=== PATIENT | female | born 1985 | race Caucasian/White ===

== ENCOUNTER 2016-08-24 01:06 | Inpatient (IN) | payer OTHER ==
[2016-08-24] VITALS (9 sets, daily range): BP systolic 92–143; BP diastolic 69–109
[~2016-08-24] VITALS: Ht 162.6 cm; Wt 60.3 kg
[~2016-08-24 01:06] MED LIST: ATARAX,VISTARIL50 MG PO; ATIVAN PO; Acyclovir PO; Atarax,Vistaril PO; BACTRIM,SEPT1 TABLET PO; BUSPAR10 MG PO; BUSPAR15 MG PO; CIPRO500 MG PO; CLINDAMYCIN HC300 MG PO; DESYREL100 MG PO; FLINTSTONES1 TABLET PO; HALDOL10 MG PO; MACROBID100 MG PO; MOTRIN600 MG PO; Motrin PO; NOHOMEMEDS; NYSTATIN-TRIAMC15 GM TP; PAXIL10 MG PO; PAXIL2 MG/ML PO; PAXIL20 MG PO; PAXIL30 MG PO; PAXIL40 MG PO; PREDNISONE50 MG PO; PROVENTIL HFA6.7 GM IH; Phenergan PO; REGLAN5 MG PO; TERAZOL 745 GM VG; THORAZINE50 MG PO; TORADOL10 MG PO; TRAZODONE HCL100 MG PO; TRAZODONE HCL50 MG PO; ULTRAM50 MG PO; VALTREX1000 MG PO; VENTOLIN HFA18 GM IH; VISTARIL25 MG PO; ZITHROMAX Z-PA250 MG PO; ZOLOFT25 MG; ZOLOFT50 MG PO; Zoloft PO
[2016-08-24 02:07] LABS: HEMATOCRIT 43.1 % (36.0-46.0); MCH 29.2 PG (29.0-34.0); MCHC 33.2 G/DL (30.0-36.0); MCV 88.1 FL (83-99); MEAN PLAT.VOLUME 9.2 uM^3 (9.5-12.4); PLATELET COUNT 361 K/uL (156-360); RBC DIS.WIDTH-CV 13.2 % (11.8-14.6); RBC DIS.WIDTH-SD 42.9 % (39-53); RED BLOOD COUNT 4.89 M/uL (3.80-5.20); WHITE BLOOD COUNT 13.1 K/uL (4.1-10.2)
[2016-08-24 02:24] LABS: CHLORIDE 105 mEq/L (99-109); SODIUM 140 mEq/L (136-147)
[2016-08-24 02:26] LABS: GLUCOSE 92 mg/dL (70-99)
[2016-08-24 02:27] LABS: ANION GAP 13 MEQ/L (2-14)
[2016-08-24 02:29] LABS: SERUM ETHYL ALCOHOL < 10 mg/dL
[2016-08-24 02:30] LABS: GFR ESTIMATE (CALCULATED) > 59 mL/min/
[2016-08-24 02:32] LABS: UREA NITROGEN (BUN) 8 mg/dL (9-23)
[2016-08-24 02:33] LABS: SALICYLATE < 5.0 MG/DL (15-30)
[2016-08-24 02:39] LABS: QUANTITATIVE HCG < 4.0 MIU/ML
[2016-08-24 04:32] LABS: ADD MIUA? YES; BILIRUBIN NEGATIVE; BLOOD NEGATIVE; COLOR YELLOW ((YELLOW)); GLUCOSE (STRIP) NEGATIVE; KETONES NEGATIVE; LEUKOCYTES TRACE; NITRITE NEGATIVE; PROTEIN (STRIP) 30; UROBILINOGEN 0.2 MG/DL (0.2-1.0)
[2016-08-24 04:40] LABS: AMPHETAMINE NEGATIVE (500 ng/mL); BARBITURATES NEGATIVE (200 ng/mL); BENZODIAZEPINES PRESUMPTIVE POSITIVE (150 ng/mL); COCAINE NEGATIVE (150 ng/mL); INTERNAL CONTROLS VALID? YES; METHADONE NEGATIVE (200 ng/mL); METHAMPHETAMINE NEGATIVE (500 ng/mL); OPIATES (MORPHINE) NEGATIVE (100 ng/mL); OXYCODONE NEGATIVE (100 ng/mL); PHENCYCLIDINE NEGATIVE (25 ng/mL); PROPOXYPHENE NEGATIVE (300 ng/mL); THC CANNABINOIDS NEGATIVE (50 ng/mL); TRICYCLIC ANTIDEPRESSANTS NEGATIVE (300 ng/mL)
[2016-08-24 04:41] LABS: ADD MEDTOX COMMENT Y
[2016-08-24 04:52] LABS: BACTERIA 1+ /HPF; CASTS NONE SEEN /LPF; CRYSTALS NONE SEEN; EPITHELIAL CELLS 2+ /HPF; MUCUS 2+ /LPF; RED BLOOD CELLS NONE SEEN /HPF (0-5); UCUL ADDED? NO
[2016-08-24 05:25] LABS: BENZODIAZEPINES QUANT VALUE 0 NG/ML
[2016-08-24 05:26] LABS: BENZODIAZEPINES, URINE SCREEN Negative (200 ng/mL)
[2016-08-24 10:48] LABS: CHLORIDE 110 mEq/L (99-109); POTASSIUM 4.4 mEq/L (3.7-5.4); SODIUM 138 mEq/L (136-147)
[2016-08-24 10:50] LABS: GLUCOSE 86 mg/dL (70-99)
[2016-08-24 10:52] LABS: ANION GAP 8 MEQ/L (2-14)
[2016-08-24 10:54] LABS: GFR ESTIMATE (CALCULATED) > 59 mL/min/
[2016-08-24 10:55] LABS: UREA NITROGEN (BUN) 7 mg/dL (9-23)
[2016-08-24 18:02] LABS: BASE EXCESS -2.1 mEq/L (-3 to +3); BICARBONATE 22.3 mEq/L (22-26); CARBOXY HGB 2.4 % (0-5); COMMENTS - BLOOD GASES A+C+; DEVICE NRBM; FI02 100 %; METHEMOGLOBIN 1.5 % (0-1.5); O2 FLOW 15 L/MIN; PCO2 36 mm Hg (35-45); PO2 67 mm Hg (80-100); SITE RR; TOTAL RESP RATE 24 resp/min
[2016-08-24 21:34] LABS: ADD MIUA? NO; BILIRUBIN NEGATIVE; BLOOD NEGATIVE; COLOR YELLOW ((YELLOW)); GLUCOSE (STRIP) NEGATIVE; KETONES 5; LEUKOCYTES NEGATIVE; NITRITE NEGATIVE; PROTEIN (STRIP) NEGATIVE; SPECIFIC GRAVITY 1.015 (1.000-1.030); UCUL ADDED? NO; UROBILINOGEN 0.2 MG/DL (0.2-1.0)
[2016-08-24 21:54] LABS: BASE EXCESS -3.9 mEq/L (-3 to +3); BICARBONATE 20.8 mEq/L (22-26); CARBOXY HGB 1.8 % (0-5); METHEMOGLOBIN 1.7 % (0-1.5); PCO2 36 mm Hg (35-45); PO2 124 mm Hg (80-100); pH 7.37 (7.35-7.45)
[2016-08-24 21:55] LABS: COMMENTS - BLOOD GASES C+A+; DEVICE 840 VENT; FI02 100 %; MECHANICAL RATE 14 resp/min; MODE AC; PEEP 10 CM/H20; SITE LR; TIDAL VOLUME 500 ML; TOTAL RESP RATE 19 resp/min
[2016-08-24 22:57] LABS: METH RESISTANT S AUREUS PCR NEGATIVE (NEGATIVE); PROBE CHECK PASS; SPECIMEN PROCESSING CONTROL PASS
[2016-08-25] VITALS (24 sets, daily range): BP systolic 88–124; BP diastolic 58–90
[2016-08-25 07:06] LABS: EOSINOPHIL (%) 0 % (0-5); HEMATOCRIT 38.1 % (36.0-46.0); IMMATURE GRANULOCYTE (%) 0.4 % (0.0-0.7); IMMATURE GRANULOCYTE COUNT 0.1 K/uL; MCH 29.4 PG (29.0-34.0); MCHC 33.9 G/DL (30.0-36.0); MCV 86.8 FL (83-99); MONOCYTE (%) 2.4 % (3-12); MONOCYTE COUNT 0.4 K/uL (0-0.8); NEUTROPHIL (%) 90.7 % (45-76); RBC DIS.WIDTH-CV 12.8 % (11.8-14.6); RBC DIS.WIDTH-SD 40.8 % (39-53); RED BLOOD COUNT 4.39 M/uL (3.80-5.20); WHITE BLOOD COUNT 15.4 K/uL (4.1-10.2)
[2016-08-25 07:16] LABS: ALKALINE PHOSPHATASE 42 IU/L (3-129); ANION GAP 11 MEQ/L (2-14); CHLORIDE 102 MEQ/L (99-109); CREATINE KINASE 58 IU/L (1-294); GFR ESTIMATE (CALCULATED) > 59 mL/min/; GLUCOSE 107 mg/dL (70-99); MAGNESIUM 1.6 mg/dl (1.3-2.7); POTASSIUM 4.5 MEQ/L (3.7-5.4); SAMPLE HEMOLYSIS CHECK 0; SAMPLE ICTERIC CHECK 0; SAMPLE LIPEMIA CHECK 0; SODIUM 133 MEQ/L (136-147); TOTAL BILIRUBIN 0.6 MG/DL (0.0-1.0); TRIGLYCERIDES 98 MG/DL (Normal: <150); UREA NITROGEN (BUN) 7 mg/dL (9-23)
[2016-08-25 07:42] LABS: MEAN PLAT.VOLUME 9.9 uM^3 (9.5-12.4); PLAT.SUFFICIENCY ADEQUATE; PLATELET CLUMPS PRESENT - PLATELET COUNT APPEARS ADQ.
[2016-08-26] VITALS (12 sets, daily range): BP systolic 109–123; BP diastolic 69–82
[2016-08-26] MEDS ORDERED: WELLBUTRIN XL300 MG PO (17:20)
[2016-08-26] MEDS ORDERED: OMEPRAZOLE40 M1 PO (17:20)
[2016-08-26] MEDS ORDERED: VALTREX50 MG/ML PO (17:21)
[2016-08-26] MEDS ORDERED: DESYREL100 MG PO (17:21)
[2016-08-27 07:03] VITALS: BP 104/78
[2016-08-27 07:36] VITALS: BP 114/74
[2016-08-27 10:42] LABS: EOSINOPHIL (%) 2.1 % (0-5); EOSINOPHIL COUNT 0.2 K/uL (0-0.3); HEMATOCRIT 39.3 % (36.0-46.0); IMMATURE GRANULOCYTE (%) 0.4 % (0.0-0.7); LYMPHOCYTE COUNT 1.4 K/uL (1.0-2.8); MCH 29.1 PG (29.0-34.0); MCHC 33.1 G/DL (30.0-36.0); MCV 87.9 FL (83-99); MEAN PLAT.VOLUME 9.5 uM^3 (9.5-12.4); MONOCYTE (%) 3.4 % (3-12); MONOCYTE COUNT 0.3 K/uL (0-0.8); PLATELET COUNT 298 K/uL (156-360); RBC DIS.WIDTH-CV 12.9 % (11.8-14.6); RBC DIS.WIDTH-SD 41.4 % (39-53); RED BLOOD COUNT 4.47 M/uL (3.80-5.20)
[2016-08-27 10:55] VITALS: BP 110/74
[2016-08-27] MEDS ORDERED: LEVAQUIN750 MG PO (11:32)
[2016-08-27 17:07] VITALS: BP 101/68
[2016-08-27 23:37] VITALS: BP 117/56
[2016-08-28 07:10] VITALS: BP 104/74
[2016-08-28 07:48] LABS: BASE EXCESS 1.7 mEq/L (-3 to +3); BICARBONATE 26.6 mEq/L (22-26); CARBOXY HGB 2.2 % (0-5); COMMENTS - BLOOD GASES +C; DEVICE NRBM; FI02 100 %; METHEMOGLOBIN 1.3 % (0-1.5); O2 FLOW 20 L/MIN; PCO2 42 mm Hg (35-45); PO2 55 mm Hg (80-100); SITE RB; TOTAL RESP RATE 22 resp/min; pH 7.41 (7.35-7.45)
[2016-08-28 08:20] LABS: ANION GAP 14 MEQ/L (2-14); CHLORIDE 102 MEQ/L (99-109); GFR ESTIMATE (CALCULATED) > 59 mL/min/; GLUCOSE 97 mg/dL (70-99); POTASSIUM 3.6 MEQ/L (3.7-5.4); SAMPLE HEMOLYSIS CHECK 0; SAMPLE ICTERIC CHECK 0; SAMPLE LIPEMIA CHECK 0; UREA NITROGEN (BUN) 15 mg/dL (9-23)
[2016-08-28 08:22] LABS: SODIUM 141 MEQ/L (136-147)
[2016-08-28 08:35] LABS: TROP-I INTERPRETATION NEGATIVE; TROPONIN-I < 0.01 ng/mL (0.0-0.30)
[2016-08-28 16:44] VITALS: BP 98/64
[2016-08-28 23:19] VITALS: BP 99/63
[2016-08-29 06:18] LABS: EOSINOPHIL (%) 5.1 % (0-5); EOSINOPHIL COUNT 0.3 K/uL (0-0.3); HEMATOCRIT 38.6 % (36.0-46.0); IMMATURE GRANULOCYTE (%) 0.2 % (0.0-0.7); INSTRUMENT ABS NEUTROPHIL CT 3.7 K/uL; LYMPHOCYTE COUNT 2.3 K/uL (1.0-2.8); MCH 28.9 PG (29.0-34.0); MCHC 32.9 G/DL (30.0-36.0); MCV 87.7 FL (83-99); MEAN PLAT.VOLUME 9.2 uM^3 (9.5-12.4); MONOCYTE COUNT 0.3 K/uL (0-0.8); NEUTROPHIL (%) 55.2 % (45-76); NEUTROPHIL COUNT 3.7 K/uL (1.8-6.4); PLATELET COUNT 334 K/uL (156-360); RBC DIS.WIDTH-CV 12.5 % (11.8-14.6); RBC DIS.WIDTH-SD 40.8 % (39-53); WHITE BLOOD COUNT 6.6 K/uL (4.1-10.2)
[2016-08-29 06:35] LABS: ANION GAP 10 MEQ/L (2-14); CHLORIDE 102 MEQ/L (99-109); GFR ESTIMATE (CALCULATED) > 59 mL/min/; GLUCOSE 93 mg/dL (70-99); POTASSIUM 3.8 MEQ/L (3.7-5.4); SAMPLE HEMOLYSIS CHECK 0; SAMPLE ICTERIC CHECK 0; SAMPLE LIPEMIA CHECK 0; SODIUM 138 MEQ/L (136-147); UREA NITROGEN (BUN) 13 mg/dL (9-23)
[2016-08-29 07:56] VITALS: BP 103/73
[2016-08-29 17:11] VITALS: BP 98/57
[2016-08-29 22:38] VITALS: BP 109/69
[2016-08-30 09:37] VITALS: BP 102/68
[2016-08-30 17:10] VITALS: BP 98/56
[2016-08-31 04:13] VITALS: BP 112/64
[2016-08-31 07:26] VITALS: BP 100/67
[2016-08-31 15:50] VITALS: BP 96/54
[2016-09-01 08:36] VITALS: BP 113/67
[2016-09-02] MEDS ORDERED: FLUOXETINE HCL10 MG PO (09:55)
== END 2016-09-01 11:43 | DRG 917 ==
LOC: EME 01:06 → EDOF 03:53 → 4WEST 03:53 → 5EAST 03:53 → 4EAST 13:08 → 4WEST 20:43 → 5EAST 08-26 14:58
PROVIDERS: Emergency Medicine; Family Medicine; Internal Medicine
DX: T43.292A Poisoning by other antidepressants, intentional self-harm, initial encounter (principal); J96.01 Acute respiratory failure with hypoxia; J69.0 Pneumonitis due to inhalation of food and vomit; G92 Toxic encephalopathy; F33.9 Major depressive disorder, recurrent, unspecified; G40.509 Epileptic seizures related to external causes, not intractable, without status epilepticus; D47.3 Essential (hemorrhagic) thrombocythemia; F60.3 Borderline personality disorder; D72.829 Elevated white blood cell count, unspecified; F17.210 Nicotine dependence, cigarettes, uncomplicated; F10.10 Alcohol abuse, uncomplicated; Z86.73 Personal history of transient ischemic attack (TIA), and cerebral infarction without residual deficits; Z90.49 Acquired absence of other specified parts of digestive tract
CPT/HCPCS: 36600; 71010; 71275; 80048; 80048 91; 80053; 81003; 82550; 82803; 83735; 84100; 84443; 84478; 84484; 84702; 84999; 85025; 85027; 87070; 87205; 87641; 92610 GN; 93005; 94002; 94003; 94010; 94640; 94640 76; 94667; 94668; 94760; 94799; 95819; 99202; 99281; 99285; G0480; J0330; J0692; J1644; J1650; J1953; J1956; J2060; J2405; J2704; J2765; J2930; J3010; J3486; J7030; J7050; J7120; S0030

== ENCOUNTER 2016-09-01 11:50 | Inpatient (IN) | payer OTHER ==
[~2016-09-01 11:50] MED LIST changes: +LEVAQUIN750 MG PO; +OMEPRAZOLE40 M1 PO; +VALTREX50 MG/ML PO; +WELLBUTRIN XL300 MG PO
[2016-09-01 15:58] VITALS: BP 111/64
[2016-09-02 08:08] VITALS: BP 114/67
[2016-09-02] MEDS ORDERED: FLUOXETINE HCL10 MG PO (09:55)
== END 2016-09-02 11:14 | disposition home or self-care (01) | DRG 885 ==
LOC: 1WEST 11:50
DX: F33.9 Major depressive disorder, recurrent, unspecified (principal); F60.3 Borderline personality disorder; R41.83 Borderline intellectual functioning; R00.0 Tachycardia, unspecified; T43.292D Poisoning by other antidepressants, intentional self-harm, subsequent encounter
CPT/HCPCS: 94640

== ENCOUNTER 2017-01-24 02:39 | Emergency (ER) | payer OTHER ==
[~2017-01-24] VITALS: Ht 162.6 cm; Wt 79.4 kg
[~2017-01-24 02:39] MED LIST changes: +FLUOXETINE HCL10 MG PO
[2017-01-24 03:19] LABS: HEMATOCRIT 41.2 % (36.0-46.0); MCH 28.6 PG (29.0-34.0); MCHC 33.7 G/DL (30.0-36.0); MCV 84.8 FL (83-99); MEAN PLAT.VOLUME 9.6 uM^3 (9.5-12.4); PLATELET COUNT 306 K/uL (156-360); RBC DIS.WIDTH-CV 14.1 % (11.8-14.6); RBC DIS.WIDTH-SD 43.6 % (39-53); RED BLOOD COUNT 4.86 M/uL (3.80-5.20); WHITE BLOOD COUNT 7.7 K/uL (4.1-10.2)
[2017-01-24 03:35] LABS: ADD MIUA? YES; BILIRUBIN NEGATIVE; BLOOD NEGATIVE; COLOR YELLOW ((YELLOW)); GLUCOSE (STRIP) NEGATIVE; KETONES NEGATIVE; LEUKOCYTES NEGATIVE; NITRITE NEGATIVE; PROTEIN (STRIP) NEGATIVE; SPECIFIC GRAVITY 1.014 (1.000-1.030); UROBILINOGEN 0.2 MG/DL (0.2-1.0)
[2017-01-24 03:43] LABS: BACTERIA RARE /HPF; EPITHELIAL CELLS 2+ /HPF; MUCUS TRACE /LPF; RED BLOOD CELLS 0-5 /HPF (0-5); UCUL ADDED? NO; WHITE BLOOD CELLS 0-5 /HPF (0-5)
[2017-01-24 03:45] LABS: AMPHETAMINE NEGATIVE (500 ng/mL); BARBITURATES NEGATIVE (200 ng/mL); BENZODIAZEPINES NEGATIVE (150 ng/mL); COCAINE NEGATIVE (150 ng/mL); INTERNAL CONTROLS VALID? YES; METHADONE NEGATIVE (200 ng/mL); METHAMPHETAMINE NEGATIVE (500 ng/mL); OPIATES (MORPHINE) NEGATIVE (100 ng/mL); OXYCODONE NEGATIVE (100 ng/mL); PHENCYCLIDINE NEGATIVE (25 ng/mL); PROPOXYPHENE NEGATIVE (300 ng/mL); THC CANNABINOIDS NEGATIVE (50 ng/mL); TRICYCLIC ANTIDEPRESSANTS NEGATIVE (300 ng/mL)
[2017-01-24 03:57] LABS: SERUM ETHYL ALCOHOL 44 mg/dL
[2017-01-24 04:01] LABS: SALICYLATE < 5.0 MG/DL (15-30)
[2017-01-24 04:08] LABS: QUANTITATIVE HCG < 4.0 MIU/ML
[2017-01-24 08:17] VITALS: BP 108/65
== END 2017-01-24 08:17 ==
LOC: EME → EDBD 02:39 → EME 08:17
PROVIDERS: Physician Assistant
DX: R45.851 Suicidal ideations (principal); J40 Bronchitis, not specified as acute or chronic; F33.9 Major depressive disorder, recurrent, unspecified; F60.3 Borderline personality disorder; R41.83 Borderline intellectual functioning; F90.9 Attention-deficit hyperactivity disorder, unspecified type; K21.9 Gastro-esophageal reflux disease without esophagitis; F17.200 Nicotine dependence, unspecified, uncomplicated
CPT/HCPCS: 81003; 84702; 85027; 90837; 94640; 99281; 99285; G0480; J1885

== ENCOUNTER 2017-02-20 00:34 | Emergency (ER) | payer OTHER ==
[~2017-02-20] VITALS: Ht 162.6 cm; Wt 84.6 kg
[2017-02-20 03:58] LABS: HEMATOCRIT 39.2 % (36.0-46.0); MCH 28.4 PG (29.0-34.0); MCHC 33.2 G/DL (30.0-36.0); MCV 85.6 FL (83-99); MEAN PLAT.VOLUME 9.8 uM^3 (9.5-12.4); PLATELET COUNT 305 K/uL (156-360); RBC DIS.WIDTH-CV 14.5 % (11.8-14.6); RBC DIS.WIDTH-SD 45.1 % (39-53); RED BLOOD COUNT 4.58 M/uL (3.80-5.20); WHITE BLOOD COUNT 9.5 K/uL (4.1-10.2)
[2017-02-20 04:06] LABS: CHLORIDE 108 mEq/L (99-109); POTASSIUM 4.2 mEq/L (3.7-5.4); SODIUM 142 mEq/L (136-147)
[2017-02-20 04:07] LABS: GLUCOSE 104 mg/dL (70-99)
[2017-02-20 04:09] LABS: ANION GAP 13 MEQ/L (2-14)
[2017-02-20 04:11] LABS: GFR ESTIMATE (CALCULATED) > 59 mL/min/; SERUM ETHYL ALCOHOL < 10 mg/dL
[2017-02-20 04:13] LABS: UREA NITROGEN (BUN) 10 mg/dL (9-23)
[2017-02-20 04:15] LABS: SALICYLATE < 5.0 MG/DL (15-30)
[2017-02-20 06:45] LABS: AMPHETAMINE PRESUMPTIVE POSITIVE (500 ng/mL); BARBITURATES NEGATIVE (200 ng/mL); BENZODIAZEPINES NEGATIVE (150 ng/mL); COCAINE NEGATIVE (150 ng/mL); METHADONE NEGATIVE (200 ng/mL); METHAMPHETAMINE NEGATIVE (500 ng/mL); OPIATES (MORPHINE) NEGATIVE (100 ng/mL); OXYCODONE NEGATIVE (100 ng/mL); PHENCYCLIDINE NEGATIVE (25 ng/mL); PROPOXYPHENE NEGATIVE (300 ng/mL); THC CANNABINOIDS NEGATIVE (50 ng/mL); TRICYCLIC ANTIDEPRESSANTS NEGATIVE (300 ng/mL)
[2017-02-20 06:46] LABS: ADD MEDTOX COMMENT Y; INTERNAL CONTROLS VALID? YES
[2017-02-20 08:33] VITALS: BP 142/97
== END 2017-02-20 08:58 ==
LOC: EME 00:34
PROVIDERS: Emergency Medicine
DX: R45.851 Suicidal ideations (principal); F31.81 Bipolar II disorder; F90.0 Attention-deficit hyperactivity disorder, predominantly inattentive type; F60.3 Borderline personality disorder; R11.0 Nausea; Z90.49 Acquired absence of other specified parts of digestive tract; F17.200 Nicotine dependence, unspecified, uncomplicated
CPT/HCPCS: 80048; 84999; 85027; 90837; 99281; 99285; G0480

== ENCOUNTER 2017-03-06 19:21 | Emergency (ER) | payer OTHER ==
[~2017-03-06] VITALS: Ht 162.6 cm; Wt 83.0 kg
[2017-03-06 20:28] LABS: HEMATOCRIT 37.1 % (36.0-46.0); MCH 28.5 PG (29.0-34.0); MCHC 33.2 G/DL (30.0-36.0); MCV 86.1 FL (83-99); MEAN PLAT.VOLUME 9.6 uM^3 (9.5-12.4); PLATELET COUNT 310 K/uL (156-360); RBC DIS.WIDTH-CV 13.9 % (11.8-14.6); RBC DIS.WIDTH-SD 43.8 % (39-53); RED BLOOD COUNT 4.31 M/uL (3.80-5.20); WHITE BLOOD COUNT 10.6 K/uL (4.1-10.2)
[2017-03-06 20:37] LABS: CHLORIDE 110 mEq/L (99-109); POTASSIUM 4.1 mEq/L (3.7-5.4); SODIUM 142 mEq/L (136-147)
[2017-03-06 20:38] LABS: GLUCOSE 73 mg/dL (70-99)
[2017-03-06 20:40] LABS: ANION GAP 9 MEQ/L (2-14)
[2017-03-06 20:42] LABS: GFR ESTIMATE (CALCULATED) > 59 mL/min/; SERUM ETHYL ALCOHOL 32 mg/dL
[2017-03-06 20:43] LABS: UREA NITROGEN (BUN) 7 mg/dL (9-23)
[2017-03-06 20:50] LABS: QUANTITATIVE HCG < 4.0 MIU/ML
[2017-03-06 20:51] LABS: AMPHETAMINE NEGATIVE (500 ng/mL); BARBITURATES NEGATIVE (200 ng/mL); BENZODIAZEPINES NEGATIVE (150 ng/mL); COCAINE NEGATIVE (150 ng/mL); INTERNAL CONTROLS VALID? YES; METHADONE NEGATIVE (200 ng/mL); METHAMPHETAMINE NEGATIVE (500 ng/mL); OPIATES (MORPHINE) PRESUMPTIVE POSITIVE (100 ng/mL); OXYCODONE NEGATIVE (100 ng/mL); PHENCYCLIDINE NEGATIVE (25 ng/mL); PROPOXYPHENE NEGATIVE (300 ng/mL); THC CANNABINOIDS NEGATIVE (50 ng/mL); TRICYCLIC ANTIDEPRESSANTS NEGATIVE (300 ng/mL)
[2017-03-06 20:52] LABS: ADD MEDTOX COMMENT Y
[2017-03-06 21:21] LABS: OPIATES QUANTITATIVE VALUE 0 NG/ML
[2017-03-06 22:41] VITALS: BP 107/75
== END 2017-03-06 22:41 | disposition home or self-care (01) ==
LOC: EME → EDBD 19:21 → EME 22:41
PROVIDERS: Emergency Medicine
DX: F33.9 Major depressive disorder, recurrent, unspecified (principal); F60.3 Borderline personality disorder; R41.83 Borderline intellectual functioning; F10.99 Alcohol use, unspecified with unspecified alcohol-induced disorder; F17.200 Nicotine dependence, unspecified, uncomplicated; Y90.1 Blood alcohol level of 20-39 mg/100 ml
CPT/HCPCS: 80048; 84702; 84999; 85027; 90837; 99281; 99285; G0480

== ENCOUNTER 2017-03-08 23:00 | Emergency (ER) | payer OTHER ==
[~2017-03-08] VITALS: Ht 157.5 cm; Wt 83.8 kg
[2017-03-09 01:34] LABS: HEMATOCRIT 37.8 % (36.0-46.0); MCH 28.3 PG (29.0-34.0); MCHC 33.3 G/DL (30.0-36.0); MCV 84.9 FL (83-99); MEAN PLAT.VOLUME 9.5 uM^3 (9.5-12.4); PLATELET COUNT 313 K/uL (156-360); RBC DIS.WIDTH-CV 13.7 % (11.8-14.6); RBC DIS.WIDTH-SD 42.7 % (39-53); RED BLOOD COUNT 4.45 M/uL (3.80-5.20); WHITE BLOOD COUNT 12.1 K/uL (4.1-10.2)
[2017-03-09 01:42] LABS: CHLORIDE 107 mEq/L (99-109); POTASSIUM 3.8 mEq/L (3.7-5.4); SODIUM 138 mEq/L (136-147)
[2017-03-09 01:46] LABS: ANION GAP 10 MEQ/L (2-14); GLUCOSE 98 mg/dL (70-99)
[2017-03-09 01:47] LABS: SERUM ETHYL ALCOHOL < 10 mg/dL
[2017-03-09 01:48] LABS: GFR ESTIMATE (CALCULATED) > 59 mL/min/
[2017-03-09 01:49] LABS: UREA NITROGEN (BUN) 6 mg/dL (9-23)
[2017-03-09 01:56] LABS: QUANTITATIVE HCG < 4.0 MIU/ML
[2017-03-09 01:58] LABS: AMPHETAMINE NEGATIVE (500 ng/mL); BARBITURATES NEGATIVE (200 ng/mL); BENZODIAZEPINES NEGATIVE (150 ng/mL); COCAINE NEGATIVE (150 ng/mL); METHAMPHETAMINE NEGATIVE (500 ng/mL); OPIATES (MORPHINE) NEGATIVE (100 ng/mL); OXYCODONE NEGATIVE (100 ng/mL); PHENCYCLIDINE NEGATIVE (25 ng/mL); THC CANNABINOIDS NEGATIVE (50 ng/mL); TRICYCLIC ANTIDEPRESSANTS NEGATIVE (300 ng/mL)
[2017-03-09 01:59] LABS: INTERNAL CONTROLS VALID? YES; METHADONE NEGATIVE (200 ng/mL); PROPOXYPHENE NEGATIVE (300 ng/mL)
[2017-03-09 10:49] VITALS: BP 137/81
== END 2017-03-09 10:53 ==
LOC: EME 23:00
PROVIDERS: Emergency Medicine
DX: R45.851 Suicidal ideations (principal); F33.9 Major depressive disorder, recurrent, unspecified; F60.3 Borderline personality disorder; R41.83 Borderline intellectual functioning; F90.9 Attention-deficit hyperactivity disorder, unspecified type; F31.9 Bipolar disorder, unspecified; K21.9 Gastro-esophageal reflux disease without esophagitis; F17.200 Nicotine dependence, unspecified, uncomplicated; Z88.0 Allergy status to penicillin; Z91.040 Latex allergy status
CPT/HCPCS: 80048; 84702; 85027; 90837; 99281; 99285; G0480

== ENCOUNTER 2017-04-17 13:29 | Emergency (ER) | payer OTHER ==
[~2017-04-17] VITALS: Ht 162.6 cm; Wt 80.1 kg
[2017-04-17 15:02] LABS: CHLORIDE 109 mEq/L (99-109); HEMATOCRIT 38.8 % (36.0-46.0); MCH 27.9 PG (29.0-34.0); MCV 84.5 FL (83-99); MEAN PLAT.VOLUME 9.7 uM^3 (9.5-12.4); PLATELET COUNT 279 K/uL (156-360); POTASSIUM 3.7 mEq/L (3.7-5.4); RBC DIS.WIDTH-SD 42.8 % (39-53); RED BLOOD COUNT 4.59 M/uL (3.80-5.20); SODIUM 138 mEq/L (136-147); WHITE BLOOD COUNT 7.1 K/uL (4.1-10.2)
[2017-04-17 15:05] LABS: GLUCOSE 109 mg/dL (70-99)
[2017-04-17 15:06] LABS: ANION GAP 10 MEQ/L (2-14); TOTAL BILIRUBIN 0.3 mg/dL (0.0-1.0)
[2017-04-17 15:07] LABS: SERUM ETHYL ALCOHOL < 10 mg/dL
[2017-04-17 15:08] LABS: ALKALINE PHOSPHATASE 83 IU/L (3-129); GFR ESTIMATE (CALCULATED) > 59 mL/min/
[2017-04-17 15:09] LABS: UREA NITROGEN (BUN) 10 mg/dL (9-23)
[2017-04-17 15:19] LABS: QUANTITATIVE HCG < 4.0 MIU/ML
[2017-04-17 16:08] VITALS: BP 147/46
== END 2017-04-17 16:09 | disposition home or self-care (01) ==
LOC: EME 13:29
PROVIDERS: Emergency Medicine
DX: F60.3 Borderline personality disorder (principal); F33.9 Major depressive disorder, recurrent, unspecified; F10.10 Alcohol abuse, uncomplicated; R41.83 Borderline intellectual functioning; Y90.0 Blood alcohol level of less than 20 mg/100 ml; Z04.6 Encounter for general psychiatric examination, requested by authority; F17.200 Nicotine dependence, unspecified, uncomplicated; F90.9 Attention-deficit hyperactivity disorder, unspecified type; K21.9 Gastro-esophageal reflux disease without esophagitis; Z91.040 Latex allergy status; Z88.1 Allergy status to other antibiotic agents; Z88.6 Allergy status to analgesic agent
CPT/HCPCS: 80053; 81003; 84702; 85027; 90837; 99281; 99284; G0480

== ENCOUNTER 2017-04-18 17:36 | Emergency (ER) | payer OTHER ==
[~2017-04-18] VITALS: Ht 162.6 cm; Wt 80.9 kg
[2017-04-18 20:46] VITALS: BP 120/77
== END 2017-04-18 20:52 | disposition home or self-care (01) ==
LOC: EME 17:36
DX: F60.3 Borderline personality disorder (principal); J02.9 Acute pharyngitis, unspecified; F32.9 Major depressive disorder, single episode, unspecified; F90.9 Attention-deficit hyperactivity disorder, unspecified type; F17.200 Nicotine dependence, unspecified, uncomplicated; K21.9 Gastro-esophageal reflux disease without esophagitis; Z91.040 Latex allergy status; Z88.1 Allergy status to other antibiotic agents
CPT/HCPCS: 87651 90; 99281; 99284

== ENCOUNTER 2017-05-03 14:37 | Emergency (ER) | payer OTHER ==
[~2017-05-03] VITALS: Ht 162.6 cm; Wt 81.8 kg
[2017-05-03] MEDS ORDERED: IBUPROFEN800 MG PO (16:26)
[2017-05-03 16:33] VITALS: BP 111/79
== END 2017-05-03 16:46 | disposition home or self-care (01) ==
LOC: EME 14:37
DX: S93.401A Sprain of unspecified ligament of right ankle, initial encounter (principal); R60.1 Generalized edema; W01.0XXA Fall on same level from slipping, tripping and stumbling without subsequent striking against object, initial encounter; F17.200 Nicotine dependence, unspecified, uncomplicated; Z71.6 Tobacco abuse counseling; Z91.040 Latex allergy status; Z88.1 Allergy status to other antibiotic agents
CPT/HCPCS: 73630; 99281; 99284; J1885

== ENCOUNTER 2017-05-26 19:17 | Emergency (ER) | payer OTHER ==
[~2017-05-26] VITALS: Ht 157.5 cm; Wt 84.2 kg
[~2017-05-26 19:17] MED LIST changes: +IBUPROFEN800 MG PO
[2017-05-26 20:21] VITALS: BP 127/80
== END 2017-05-26 20:22 | disposition home or self-care (01) ==
LOC: EME 19:17
DX: F32.9 Major depressive disorder, single episode, unspecified (principal); F17.200 Nicotine dependence, unspecified, uncomplicated
CPT/HCPCS: 99281; 99283

== ENCOUNTER 2017-06-08 18:25 | Emergency (ER) | payer OTHER ==
[~2017-06-08] VITALS: Ht 162.6 cm; Wt 85.6 kg
[2017-06-08 19:33] LABS: HEMATOCRIT 40.9 % (36.0-46.0); HEMOGLOBIN 13.7 G/DL (11.9-15.5); MCH 27.5 PG (29.0-34.0); MCHC 33.5 G/DL (30.0-36.0); MCV 82.1 FL (83-99); PLATELET COUNT 327 K/uL (156-360); RBC DIS.WIDTH-CV 14.9 % (11.8-14.6); RBC DIS.WIDTH-SD 44.1 % (39-53); RED BLOOD COUNT 4.98 M/uL (3.80-5.20); WHITE BLOOD COUNT 10.9 K/uL (4.1-10.2)
[2017-06-08 19:42] LABS: ALBUMIN 4.5 g/dL (3.2-4.8); CHLORIDE 104 mEq/L (99-109); POTASSIUM 4.2 mEq/L (3.7-5.4); SODIUM 138 mEq/L (136-147)
[2017-06-08 19:44] LABS: GLUCOSE 84 mg/dL (70-99); TOTAL PROTEIN 7.6 g/dL (6.4-8.3)
[2017-06-08 19:46] LABS: TOTAL BILIRUBIN 0.2 mg/dL (0.0-1.0)
[2017-06-08 19:48] LABS: ALKALINE PHOSPHATASE 97 IU/L (3-129); CREATININE 0.8 mg/dL (0.6-1.3); GFR ESTIMATE (CALCULATED) > 59 mL/min/
[2017-06-08 19:49] LABS: AST (GOT) 16 IU/L (2-34); UREA NITROGEN (BUN) 8 mg/dL (9-23)
[2017-06-08 19:51] LABS: ALT (GPT) 24 IU/L (3-49)
[2017-06-08 19:57] LABS: QUANTITATIVE HCG 116.7 MIU/ML
[2017-06-08 20:05] LABS: APPEARANCE CLEAR ((CLEAR)); BILIRUBIN NEGATIVE; BLOOD SMALL; COLOR COLORLESS ((YELLOW)); GLUCOSE (STRIP) NEGATIVE; KETONES NEGATIVE; LEUKOCYTES NEGATIVE; NITRITE NEGATIVE; PROTEIN (STRIP) NEGATIVE; SPECIFIC GRAVITY 1.003 (1.000-1.030); UROBILINOGEN 0.2 MG/DL (0.2-1.0)
[2017-06-08 20:18] LABS: BACTERIA NONE SEEN /HPF; EPITHELIAL CELLS RARE /HPF; MUCUS NONE SEEN /LPF; RED BLOOD CELLS 0-5 /HPF (0-5); UCUL ADDED? NO; WHITE BLOOD CELLS 0-5 /HPF (0-5)
[2017-06-08 22:49] VITALS: BP 126/74
== END 2017-06-08 22:53 | disposition home or self-care (01) ==
LOC: EME 18:25
DX: R10.9 Unspecified abdominal pain (principal); J02.9 Acute pharyngitis, unspecified; R05 Cough; R31.9 Hematuria, unspecified; Z32.01 Encounter for pregnancy test, result positive; Z90.49 Acquired absence of other specified parts of digestive tract; F17.200 Nicotine dependence, unspecified, uncomplicated
CPT/HCPCS: 76770; 76801; 80053; 81003; 84702; 85027; 87651 90; 99281; 99284

== ENCOUNTER 2017-06-09 13:00 | Emergency (ER) | payer OTHER ==
[~2017-06-09] VITALS: Ht 162.6 cm; Wt 84.4 kg
[2017-06-09 13:28] LABS: HEMATOCRIT 41.1 % (36.0-46.0); HEMOGLOBIN 13.7 G/DL (11.9-15.5); MCH 27.4 PG (29.0-34.0); MCHC 33.3 G/DL (30.0-36.0); MCV 82.2 FL (83-99); PLATELET COUNT 358 K/uL (156-360); RBC DIS.WIDTH-SD 44.6 % (39-53)
[2017-06-09 13:41] LABS: ALBUMIN 4.5 g/dL (3.2-4.8); CHLORIDE 105 mEq/L (99-109); SODIUM 139 mEq/L (136-147)
[2017-06-09 13:43] LABS: GLUCOSE 85 mg/dL (70-99); TOTAL PROTEIN 7.7 g/dL (6.4-8.3)
[2017-06-09 13:45] LABS: TOTAL BILIRUBIN 0.2 mg/dL (0.0-1.0)
[2017-06-09 13:47] LABS: ALKALINE PHOSPHATASE 96 IU/L (3-129); CREATININE 0.8 mg/dL (0.6-1.3); GFR ESTIMATE (CALCULATED) > 59 mL/min/
[2017-06-09 13:48] LABS: UREA NITROGEN (BUN) 8 mg/dL (9-23)
[2017-06-09 13:49] LABS: AST (GOT) 16 IU/L (2-34)
[2017-06-09 13:50] LABS: ALT (GPT) 23 IU/L (3-49)
[2017-06-09 13:55] LABS: QUANTITATIVE HCG 174.6 MIU/ML
[2017-06-09 15:05] LABS: BILIRUBIN NEGATIVE; BLOOD NEGATIVE; COLOR YELLOW ((YELLOW)); GLUCOSE (STRIP) NEGATIVE; KETONES NEGATIVE; LEUKOCYTES SMALL; NITRITE NEGATIVE; PROTEIN (STRIP) NEGATIVE; SPECIFIC GRAVITY 1.016 (1.000-1.030); UROBILINOGEN 0.2 MG/DL (0.2-1.0)
[2017-06-09 15:08] LABS: APPEARANCE SL.HAZY ((CLEAR))
[2017-06-09 15:17] LABS: BACTERIA RARE /HPF; EPITHELIAL CELLS 1+ /HPF; MUCUS TRACE /LPF; RED BLOOD CELLS 0-5 /HPF (0-5); UCUL ADDED? NO; WHITE BLOOD CELLS 0-5 /HPF (0-5)
[2017-06-09 16:26] VITALS: BP 118/72
== END 2017-06-09 16:28 | disposition home or self-care (01) ==
LOC: EME 13:00
DX: O26.891 Other specified pregnancy related conditions, first trimester (principal); R10.31 Right lower quadrant pain; Z3A.00 Weeks of gestation of pregnancy not specified; K21.9 Gastro-esophageal reflux disease without esophagitis; O99.341 Other mental disorders complicating pregnancy, first trimester; F32.9 Major depressive disorder, single episode, unspecified; F31.9 Bipolar disorder, unspecified; F90.9 Attention-deficit hyperactivity disorder, unspecified type; O99.331 Smoking (tobacco) complicating pregnancy, first trimester; F17.200 Nicotine dependence, unspecified, uncomplicated; Z90.49 Acquired absence of other specified parts of digestive tract; Z91.040 Latex allergy status; Z88.0 Allergy status to penicillin; Z88.5 Allergy status to narcotic agent
CPT/HCPCS: 80053; 81003; 84702; 85027; 99281; 99284

== ENCOUNTER 2017-06-30 19:35 | Emergency (ER) | payer OTHER ==
[~2017-06-30] VITALS: Ht 154.9 cm; Wt 85.4 kg
[2017-06-30 20:12] LABS: HEMATOCRIT 38.6 % (36.0-46.0); HEMOGLOBIN 12.9 G/DL (11.9-15.5); MCH 27.1 PG (29.0-34.0); MCHC 33.4 G/DL (30.0-36.0); MCV 81.1 FL (83-99); PLATELET COUNT 321 K/uL (156-360); RBC DIS.WIDTH-CV 15.7 % (11.8-14.6); RBC DIS.WIDTH-SD 46.4 % (39-53); RED BLOOD COUNT 4.76 M/uL (3.80-5.20); WHITE BLOOD COUNT 11.5 K/uL (4.1-10.2)
[2017-06-30 20:21] LABS: ALBUMIN 4.1 g/dL (3.2-4.8); CHLORIDE 107 mEq/L (99-109); POTASSIUM 3.7 mEq/L (3.7-5.4); SODIUM 138 mEq/L (136-147)
[2017-06-30 20:23] LABS: GLUCOSE 98 mg/dL (70-99)
[2017-06-30 20:25] LABS: TOTAL BILIRUBIN 0.1 mg/dL (0.0-1.0)
[2017-06-30 20:27] LABS: ALKALINE PHOSPHATASE 89 IU/L (3-129); CREATININE 0.7 mg/dL (0.6-1.3); GFR ESTIMATE (CALCULATED) > 59 mL/min/
[2017-06-30 20:28] LABS: UREA NITROGEN (BUN) 11 mg/dL (9-23)
[2017-06-30 20:29] LABS: AST (GOT) 14 IU/L (2-34)
[2017-06-30 20:30] LABS: ALT (GPT) 15 IU/L (3-49)
[2017-06-30 20:53] LABS: QUANTITATIVE HCG 63453.7 MIU/ML
[2017-06-30 21:59] LABS: APPEARANCE SL.HAZY ((CLEAR)); BILIRUBIN NEGATIVE; BLOOD NEGATIVE; COLOR YELLOW ((YELLOW)); GLUCOSE (STRIP) NEGATIVE; KETONES NEGATIVE; LEUKOCYTES SMALL; NITRITE NEGATIVE; PROTEIN (STRIP) NEGATIVE; SPECIFIC GRAVITY 1.025 (1.000-1.030); UROBILINOGEN 0.2 MG/DL (0.2-1.0)
[2017-06-30 22:07] LABS: BACTERIA RARE /HPF; EPITHELIAL CELLS 2+ /HPF; MUCUS TRACE /LPF; RED BLOOD CELLS 0-5 /HPF (0-5); UCUL ADDED? NO; WHITE BLOOD CELLS 0-5 /HPF (0-5)
[2017-06-30] MEDS ORDERED: DICLEGIS DR 101 EACH PO (22:42)
[2017-06-30 23:02] VITALS: BP 115/58
== END 2017-06-30 23:04 | disposition home or self-care (01) ==
LOC: EME 19:35
DX: O21.9 Vomiting of pregnancy, unspecified (principal); Z3A.01 Less than 8 weeks gestation of pregnancy; O99.331 Smoking (tobacco) complicating pregnancy, first trimester; F17.200 Nicotine dependence, unspecified, uncomplicated; O99.341 Other mental disorders complicating pregnancy, first trimester; F32.9 Major depressive disorder, single episode, unspecified; F90.9 Attention-deficit hyperactivity disorder, unspecified type; O99.611 Diseases of the digestive system complicating pregnancy, first trimester; K21.9 Gastro-esophageal reflux disease without esophagitis; Z91.040 Latex allergy status; Z88.0 Allergy status to penicillin; Z90.49 Acquired absence of other specified parts of digestive tract
CPT/HCPCS: 80053; 81003; 84702; 85027; 99281; 99285; J2405; J7030

== ENCOUNTER 2017-07-06 19:49 | Emergency (ER) | payer OTHER ==
[~2017-07-06] VITALS: Ht 177.8 cm; Wt 85.1 kg
[~2017-07-06 19:49] MED LIST changes: +DICLEGIS DR 101 EACH PO
[2017-07-06 21:10] LABS: HEMATOCRIT 38.6 % (36.0-46.0); HEMOGLOBIN 12.8 G/DL (11.9-15.5); MCH 26.9 PG (29.0-34.0); MCHC 33.2 G/DL (30.0-36.0); MCV 81.1 FL (83-99); RBC DIS.WIDTH-CV 15.5 % (11.8-14.6); RED BLOOD COUNT 4.76 M/uL (3.80-5.20); WHITE BLOOD COUNT 12.7 K/uL (4.1-10.2)
[2017-07-06 21:19] LABS: ALBUMIN 4.1 g/dL (3.2-4.8); CHLORIDE 108 mEq/L (99-109); POTASSIUM 3.7 mEq/L (3.7-5.4); SODIUM 137 mEq/L (136-147)
[2017-07-06 21:22] LABS: GLUCOSE 87 mg/dL (70-99); TOTAL PROTEIN 6.8 g/dL (6.4-8.3)
[2017-07-06 21:25] LABS: ALKALINE PHOSPHATASE 85 IU/L (3-129); CREATININE 0.7 mg/dL (0.6-1.3); GFR ESTIMATE (CALCULATED) > 59 mL/min/
[2017-07-06 21:27] LABS: AST (GOT) 11 IU/L (2-34); UREA NITROGEN (BUN) 7 mg/dL (9-23)
[2017-07-06 21:28] LABS: ALT (GPT) 13 IU/L (3-49)
[2017-07-06 21:33] LABS: TOTAL BILIRUBIN 0.2 mg/dL (0.0-1.0)
[2017-07-06 21:48] LABS: HEMATOLOGY COMMENT 1 SN; PLAT.SUFFICIENCY ADEQUATE; PLATELET COUNT 192 K/uL (156-360)
[2017-07-06 21:53] LABS: QUANTITATIVE HCG 97529.2 MIU/ML
[2017-07-06 22:52] LABS: APPEARANCE CLOUDY ((CLEAR)); BILIRUBIN NEGATIVE; BLOOD NEGATIVE; COLOR YELLOW ((YELLOW)); GLUCOSE (STRIP) NEGATIVE; KETONES NEGATIVE; LEUKOCYTES LARGE; NITRITE NEGATIVE; PROTEIN (STRIP) NEGATIVE; SPECIFIC GRAVITY 1.021 (1.000-1.030); UROBILINOGEN 0.2 MG/DL (0.2-1.0)
[2017-07-06] MEDS ORDERED: ZOFRAN ODT4 MG PO (23:07)
[2017-07-06 23:27] LABS: BACTERIA 1+ /HPF; EPITHELIAL CELLS 3+ /HPF; MUCUS RARE /LPF; RED BLOOD CELLS 0-5 /HPF (0-5); UCUL ADDED? YES; WHITE BLOOD CELLS 20-30 /HPF (0-5)
[2017-07-06 23:28] LABS: FINE GRANULAR CASTS 0-5 /LPF
[2017-07-07] MEDS ORDERED: KEFLEX500 MG PO (00:19)
[2017-07-07 00:25] VITALS: BP 110/65
[2017-07-09] MEDS ORDERED: PRENATAL TABLE1 EAC3 PO (20:12)
== END 2017-07-07 00:25 | disposition home or self-care (01) ==
LOC: EME 19:49
PROVIDERS: Physician Assistant Medical
DX: O21.9 Vomiting of pregnancy, unspecified (principal); Z3A.08 8 weeks gestation of pregnancy; O99.332 Smoking (tobacco) complicating pregnancy, second trimester; F17.200 Nicotine dependence, unspecified, uncomplicated; O99.342 Other mental disorders complicating pregnancy, second trimester; F32.9 Major depressive disorder, single episode, unspecified; F90.9 Attention-deficit hyperactivity disorder, unspecified type; O99.612 Diseases of the digestive system complicating pregnancy, second trimester; K21.9 Gastro-esophageal reflux disease without esophagitis; Z88.0 Allergy status to penicillin; Z91.040 Latex allergy status
CPT/HCPCS: 76801; 80053; 81003; 84702; 85027; 87086; 99281; 99284

== ENCOUNTER 2017-07-17 19:53 | Emergency (ER) | payer OTHER ==
[~2017-07-17] VITALS: Ht 162.6 cm; Wt 84.9 kg
[~2017-07-17 19:53] MED LIST changes: +KEFLEX500 MG PO; +PRENATAL TABLE1 EAC3 PO; +ZOFRAN ODT4 MG PO
[2017-07-17 20:23] LABS: HEMATOCRIT 37.8 % (36.0-46.0); HEMOGLOBIN 12.5 G/DL (11.9-15.5); MCH 27.1 PG (29.0-34.0); MCHC 33.1 G/DL (30.0-36.0); PLATELET COUNT 290 K/uL (156-360); RBC DIS.WIDTH-CV 15.9 % (11.8-14.6); RBC DIS.WIDTH-SD 47.2 % (39-53); RED BLOOD COUNT 4.61 M/uL (3.80-5.20); WHITE BLOOD COUNT 12.9 K/uL (4.1-10.2)
[2017-07-17 20:40] LABS: ALBUMIN 4.1 g/dL (3.2-4.8)
[2017-07-17 20:41] LABS: CHLORIDE 106 mEq/L (99-109); POTASSIUM 3.9 mEq/L (3.7-5.4); SODIUM 138 mEq/L (136-147)
[2017-07-17 20:43] LABS: GLUCOSE 85 mg/dL (70-99); TOTAL PROTEIN 7.1 g/dL (6.4-8.3)
[2017-07-17 20:45] LABS: TOTAL BILIRUBIN 0.1 mg/dL (0.0-1.0)
[2017-07-17 20:46] LABS: ALKALINE PHOSPHATASE 82 IU/L (3-129)
[2017-07-17 20:47] LABS: CREATININE 0.7 mg/dL (0.6-1.3); GFR ESTIMATE (CALCULATED) > 59 mL/min/
[2017-07-17 20:48] LABS: AST (GOT) 11 IU/L (2-34); UREA NITROGEN (BUN) 8 mg/dL (9-23)
[2017-07-17 20:50] LABS: ALT (GPT) 13 IU/L (3-49)
[2017-07-17 21:20] LABS: QUANTITATIVE HCG 100912.1 MIU/ML
[2017-07-17 21:46] LABS: APPEARANCE SL.HAZY ((CLEAR)); BILIRUBIN NEGATIVE; BLOOD NEGATIVE; COLOR YELLOW ((YELLOW)); GLUCOSE (STRIP) NEGATIVE; KETONES NEGATIVE; LEUKOCYTES MODERATE; NITRITE NEGATIVE; PROTEIN (STRIP) NEGATIVE; UROBILINOGEN 0.2 MG/DL (0.2-1.0)
[2017-07-17 21:50] LABS: BACTERIA RARE /HPF; EPITHELIAL CELLS 2+ /HPF; MUCUS TRACE /LPF; RED BLOOD CELLS 0-5 /HPF (0-5); UCUL ADDED? NO; WHITE BLOOD CELLS 0-5 /HPF (0-5)
[2017-07-17 23:08] VITALS: BP 100/64
== END 2017-07-17 23:10 | disposition home or self-care (01) ==
LOC: EME 19:53
DX: O21.0 Mild hyperemesis gravidarum (principal); Z3A.09 9 weeks gestation of pregnancy; K21.9 Gastro-esophageal reflux disease without esophagitis; F90.9 Attention-deficit hyperactivity disorder, unspecified type; F32.9 Major depressive disorder, single episode, unspecified; F17.200 Nicotine dependence, unspecified, uncomplicated; Z90.49 Acquired absence of other specified parts of digestive tract; Z91.040 Latex allergy status; Z88.0 Allergy status to penicillin; Z88.6 Allergy status to analgesic agent
CPT/HCPCS: 80053; 81003; 84702; 85027; 99281; 99284; J2405; J7030

== ENCOUNTER 2017-08-03 13:16 | Emergency (ER) | payer OTHER ==
[~2017-08-03] VITALS: Ht 162.6 cm; Wt 85.5 kg
[2017-08-03 16:03] LABS: HEMATOCRIT 37.3 % (36.0-46.0); HEMOGLOBIN 12.5 G/DL (11.9-15.5); MCH 27.4 PG (29.0-34.0); MCHC 33.5 G/DL (30.0-36.0); MCV 81.6 FL (83-99); PLATELET COUNT 240 K/uL (156-360); RBC DIS.WIDTH-CV 15.8 % (11.8-14.6); RBC DIS.WIDTH-SD 47.4 % (39-53); RED BLOOD COUNT 4.57 M/uL (3.80-5.20); WHITE BLOOD COUNT 10.8 K/uL (4.1-10.2)
[2017-08-03 16:09] LABS: APPEARANCE CLOUDY ((CLEAR)); BILIRUBIN NEGATIVE; BLOOD NEGATIVE; COLOR YELLOW ((YELLOW)); GLUCOSE (STRIP) NEGATIVE; KETONES NEGATIVE; LEUKOCYTES MODERATE; NITRITE NEGATIVE; PROTEIN (STRIP) NEGATIVE; SPECIFIC GRAVITY 1.014 (1.000-1.030); UROBILINOGEN 0.2 MG/DL (0.2-1.0)
[2017-08-03 16:16] LABS: BACTERIA RARE /HPF; EPITHELIAL CELLS 4+ /HPF; MUCUS TRACE /LPF; RED BLOOD CELLS 0-5 /HPF (0-5); WHITE BLOOD CELLS 0-5 /HPF (0-5)
[2017-08-03 16:25] LABS: ALBUMIN 3.8 g/dL (3.2-4.8); CHLORIDE 107 mEq/L (99-109)
[2017-08-03 16:26] LABS: SODIUM 136 mEq/L (136-147)
[2017-08-03 16:28] LABS: GLUCOSE 79 mg/dL (70-99); TOTAL PROTEIN 6.8 g/dL (6.4-8.3)
[2017-08-03 16:30] LABS: TOTAL BILIRUBIN 0.2 mg/dL (0.0-1.0)
[2017-08-03 16:31] LABS: ALKALINE PHOSPHATASE 71 IU/L (3-129); SERUM ETHYL ALCOHOL < 10 mg/dL
[2017-08-03 16:32] LABS: CREATININE 0.7 mg/dL (0.6-1.3); GFR ESTIMATE (CALCULATED) > 59 mL/min/
[2017-08-03 16:33] LABS: AST (GOT) 12 IU/L (2-34); UREA NITROGEN (BUN) 6 mg/dL (9-23)
[2017-08-03 16:34] LABS: ALT (GPT) 11 IU/L (3-49)
[2017-08-03 16:40] LABS: AMPHETAMINE NEGATIVE (500 ng/mL); BARBITURATES NEGATIVE (200 ng/mL); BENZODIAZEPINES NEGATIVE (150 ng/mL); BUPRENORPHINE NEGATIVE (10 ng/mL); COCAINE NEGATIVE (150 ng/mL); METHADONE NEGATIVE (200 ng/mL); METHAMPHETAMINE NEGATIVE (500 ng/mL); OPIATES (MORPHINE) NEGATIVE (100 ng/mL); OXYCODONE NEGATIVE (100 ng/mL); PHENCYCLIDINE NEGATIVE (25 ng/mL); PROPOXYPHENE NEGATIVE (300 ng/mL); THC CANNABINOIDS NEGATIVE (50 ng/mL); TRICYCLIC ANTIDEPRESSANTS NEGATIVE (300 ng/mL)
[2017-08-03 16:57] LABS: QUANTITATIVE HCG 65341.4 MIU/ML
[2017-08-03 18:51] VITALS: BP 121/60
== END 2017-08-03 18:52 ==
LOC: EME 13:16
PROVIDERS: Emergency Medicine
DX: O99.341 Other mental disorders complicating pregnancy, first trimester (principal); R45.851 Suicidal ideations; F33.9 Major depressive disorder, recurrent, unspecified; F60.3 Borderline personality disorder; R41.83 Borderline intellectual functioning; Z3A.12 12 weeks gestation of pregnancy; F31.9 Bipolar disorder, unspecified; F90.9 Attention-deficit hyperactivity disorder, unspecified type; O99.611 Diseases of the digestive system complicating pregnancy, first trimester; K21.9 Gastro-esophageal reflux disease without esophagitis; O99.331 Smoking (tobacco) complicating pregnancy, first trimester; F17.200 Nicotine dependence, unspecified, uncomplicated; Z90.49 Acquired absence of other specified parts of digestive tract; Z88.0 Allergy status to penicillin; Z88.5 Allergy status to narcotic agent; Z91.040 Latex allergy status
CPT/HCPCS: 80053; 81003; 84702; 85027; 90837; 99281; 99285; G0480

== ENCOUNTER 2017-08-22 20:48 | Emergency (ER) | payer OTHER ==
[~2017-08-22] VITALS: Ht 162.6 cm; Wt 83.6 kg
[2017-08-22 21:37] LABS: HEMOGLOBIN 12.3 G/DL (11.9-15.5); MCH 28.5 PG (29.0-34.0); MCHC 34.2 G/DL (30.0-36.0); MCV 83.3 FL (83-99); PLATELET COUNT 258 K/uL (156-360); RED BLOOD COUNT 4.32 M/uL (3.80-5.20); WHITE BLOOD COUNT 10.3 K/uL (4.1-10.2)
[2017-08-22 21:48] LABS: ALBUMIN 3.9 g/dL (3.2-4.8)
[2017-08-22 21:49] LABS: CHLORIDE 106 mEq/L (99-109); POTASSIUM 3.8 mEq/L (3.7-5.4); SODIUM 139 mEq/L (136-147)
[2017-08-22 21:51] LABS: GLUCOSE 77 mg/dL (70-99)
[2017-08-22 21:53] LABS: TOTAL BILIRUBIN 0.3 mg/dL (0.0-1.0)
[2017-08-22 21:54] LABS: ALKALINE PHOSPHATASE 78 IU/L (3-129)
[2017-08-22 21:55] LABS: CREATININE 0.7 mg/dL (0.6-1.3); GFR ESTIMATE (CALCULATED) > 59 mL/min/
[2017-08-22 21:56] LABS: AST (GOT) 10 IU/L (2-34); UREA NITROGEN (BUN) 7 mg/dL (9-23)
[2017-08-22 21:57] LABS: ALT (GPT) 11 IU/L (3-49)
[2017-08-22 23:04] LABS: APPEARANCE CLOUDY ((CLEAR)); BILIRUBIN NEGATIVE; BLOOD NEGATIVE; COLOR YELLOW ((YELLOW)); GLUCOSE (STRIP) NEGATIVE; KETONES 20; LEUKOCYTES MODERATE; NITRITE NEGATIVE; PROTEIN (STRIP) 30; SPECIFIC GRAVITY 1.028 (1.000-1.030)
[2017-08-22 23:08] LABS: BACTERIA NONE SEEN /HPF; EPITHELIAL CELLS 3+ /HPF; MUCUS 1+ /LPF; RED BLOOD CELLS 0-5 /HPF (0-5); UCUL ADDED? YES
[2017-08-22 23:11] LABS: AMPHETAMINE NEGATIVE (500 ng/mL); BARBITURATES NEGATIVE (200 ng/mL); BENZODIAZEPINES NEGATIVE (150 ng/mL); COCAINE NEGATIVE (150 ng/mL); METHADONE NEGATIVE (200 ng/mL); METHAMPHETAMINE NEGATIVE (500 ng/mL); OPIATES (MORPHINE) NEGATIVE (100 ng/mL); PHENCYCLIDINE NEGATIVE (25 ng/mL); THC CANNABINOIDS NEGATIVE (50 ng/mL); TRICYCLIC ANTIDEPRESSANTS NEGATIVE (300 ng/mL)
[2017-08-22 23:12] LABS: BUPRENORPHINE NEGATIVE (10 ng/mL); OXYCODONE NEGATIVE (100 ng/mL); PROPOXYPHENE NEGATIVE (300 ng/mL)
[2017-08-22] MEDS ORDERED: ZOFRAN4 MG PO (23:52)
[2017-08-23 00:47] VITALS: BP 108/70
== END 2017-08-23 00:49 | disposition home or self-care (01) ==
LOC: EME 20:48
PROVIDERS: Emergency Medicine
DX: O21.9 Vomiting of pregnancy, unspecified (principal); Z3A.14 14 weeks gestation of pregnancy; O99.332 Smoking (tobacco) complicating pregnancy, second trimester; F17.200 Nicotine dependence, unspecified, uncomplicated; O99.612 Diseases of the digestive system complicating pregnancy, second trimester; K21.9 Gastro-esophageal reflux disease without esophagitis; O99.342 Other mental disorders complicating pregnancy, second trimester; F32.9 Major depressive disorder, single episode, unspecified; F90.9 Attention-deficit hyperactivity disorder, unspecified type; F31.9 Bipolar disorder, unspecified; Z90.49 Acquired absence of other specified parts of digestive tract; Z91.040 Latex allergy status; Z88.0 Allergy status to penicillin; Z88.5 Allergy status to narcotic agent
CPT/HCPCS: 80053; 81003; 84702; 85027; 87086; 99281; 99285; J2405; J7030

== ENCOUNTER 2017-09-16 13:39 | Emergency (ER) | payer OTHER ==
[~2017-09-16] VITALS: Ht 157.5 cm; Wt 84.0 kg
[~2017-09-16 13:39] MED LIST changes: +ZOFRAN4 MG PO
[2017-09-16 13:59] LABS: BASOPHIL (%) 0.2 % (0-1); EOSINOPHIL (%) 0.9 % (0-5); EOSINOPHIL COUNT 0.1 K/uL (0-0.3); HEMATOCRIT 35.6 % (36.0-46.0); IMMATURE GRANULOCYTE (%) 0.4 % (0.0-0.7); LYMPHOCYTE (%) 17.7 % (15-42); LYMPHOCYTE COUNT 2.1 K/uL (1.0-2.8); MCH 27.8 PG (29.0-34.0); MCHC 33.7 G/DL (30.0-36.0); MCV 82.6 FL (83-99); MONOCYTE (%) 2.7 % (3-12); MONOCYTE COUNT 0.3 K/uL (0-0.8); NEUTROPHIL (%) 78.1 % (45-76); NEUTROPHIL COUNT 9.1 K/uL (1.8-6.4); PLATELET COUNT 243 K/uL (156-360); RBC DIS.WIDTH-CV 14.6 % (11.8-14.6); RED BLOOD COUNT 4.31 M/uL (3.80-5.20); WHITE BLOOD COUNT 11.7 K/uL (4.1-10.2)
[2017-09-16 14:01] VITALS: BP 120/66
[2017-09-16 14:15] LABS: APPEARANCE SL.HAZY ((CLEAR)); BILIRUBIN NEGATIVE; BLOOD SMALL; COLOR YELLOW ((YELLOW)); GLUCOSE (STRIP) NEGATIVE; KETONES NEGATIVE; LEUKOCYTES NEGATIVE; NITRITE NEGATIVE; PROTEIN (STRIP) NEGATIVE; SPECIFIC GRAVITY 1.016 (1.000-1.030); UROBILINOGEN 0.2 MG/DL (0.2-1.0)
[2017-09-16 14:31] LABS: CHLORIDE 106 MEQ/L (99-109); POTASSIUM 3.7 MEQ/L (3.7-5.4); SODIUM 136 MEQ/L (136-147)
[2017-09-16 14:41] LABS: BACTERIA NONE SEEN /HPF; EPITHELIAL CELLS 1+ /HPF; MUCUS TRACE /LPF; RED BLOOD CELLS 0-5 /HPF (0-5); WHITE BLOOD CELLS 0-5 /HPF (0-5)
[2017-09-16 14:47] LABS: COCAINE NEGATIVE (150 ng/mL); PHENCYCLIDINE NEGATIVE (25 ng/mL); THC CANNABINOIDS NEGATIVE (50 ng/mL)
[2017-09-16 14:48] LABS: CREATININE 0.6 MG/DL (0.6-1.3); GFR ESTIMATE (CALCULATED) > 59 mL/min/; GLUCOSE 87 mg/dL (70-99); SERUM ETHYL ALCOHOL < 10 mg/dL; UREA NITROGEN (BUN) 7 mg/dL (9-23)
[2017-09-16 14:48] LABS: AMPHETAMINE NEGATIVE (500 ng/mL); BARBITURATES NEGATIVE (200 ng/mL); BENZODIAZEPINES NEGATIVE (150 ng/mL); BUPRENORPHINE NEGATIVE (10 ng/mL); METHADONE NEGATIVE (200 ng/mL); METHAMPHETAMINE NEGATIVE (500 ng/mL); OPIATES (MORPHINE) NEGATIVE (100 ng/mL); OXYCODONE NEGATIVE (100 ng/mL); PROPOXYPHENE NEGATIVE (300 ng/mL); TRICYCLIC ANTIDEPRESSANTS NEGATIVE (300 ng/mL)
== END 2017-09-16 17:50 ==
LOC: EME 13:39
PROVIDERS: Emergency Medicine
DX: O99.342 Other mental disorders complicating pregnancy, second trimester (principal); F33.1 Major depressive disorder, recurrent, moderate; R45.851 Suicidal ideations; O99.332 Smoking (tobacco) complicating pregnancy, second trimester; F17.200 Nicotine dependence, unspecified, uncomplicated; Z3A.18 18 weeks gestation of pregnancy; F60.3 Borderline personality disorder; R41.83 Borderline intellectual functioning
CPT/HCPCS: 80048; 81003; 84702; 85025; 90837; 99281; 99285; G0480

== ENCOUNTER 2017-10-06 10:05 | Emergency (ER) | payer OTHER ==
[~2017-10-06] VITALS: Ht 162.6 cm; Wt 84.5 kg
[2017-10-06] MEDS ORDERED: ZYRTEC10 M3 PO (12:02)
[2017-10-06] MEDS ORDERED: ZITHROMAX TRI-500 MG PO (12:02)
[2017-10-06] MEDS ORDERED: GUAIFENESIN600 M1 PO (12:02)
[2017-10-06 12:17] VITALS: BP 105/68
== END 2017-10-06 12:18 | disposition home or self-care (01) ==
LOC: EME 10:05
DX: O99.512 Diseases of the respiratory system complicating pregnancy, second trimester (principal); J32.9 Chronic sinusitis, unspecified; J45.901 Unspecified asthma with (acute) exacerbation; Z3A.21 21 weeks gestation of pregnancy; O99.332 Smoking (tobacco) complicating pregnancy, second trimester; F17.200 Nicotine dependence, unspecified, uncomplicated; O99.612 Diseases of the digestive system complicating pregnancy, second trimester; K21.9 Gastro-esophageal reflux disease without esophagitis; O99.89 Other specified diseases and conditions complicating pregnancy, childbirth and the puerperium; G43.909 Migraine, unspecified, not intractable, without status migrainosus; O99.342 Other mental disorders complicating pregnancy, second trimester; F32.9 Major depressive disorder, single episode, unspecified; F31.9 Bipolar disorder, unspecified; F90.9 Attention-deficit hyperactivity disorder, unspecified type; Z87.19 Personal history of other diseases of the digestive system; Z90.49 Acquired absence of other specified parts of digestive tract; Z88.8 Allergy status to other drugs, medicaments and biological substances; Z88.0 Allergy status to penicillin; Z88.5 Allergy status to narcotic agent
CPT/HCPCS: 71046; 94640; 99281; 99284

== ENCOUNTER 2017-10-13 17:47 | Emergency (ER) | payer OTHER ==
[~2017-10-13] VITALS: Ht 154.9 cm; Wt 84.4 kg
[~2017-10-13 17:47] MED LIST changes: +GUAIFENESIN600 M1 PO; +ZITHROMAX TRI-500 MG PO; +ZYRTEC10 M3 PO
[2017-10-13] MEDS ORDERED: CLOTRIMAZOLE 321 GM VG (21:14)
[2017-10-13 21:37] VITALS: BP 106/70
== END 2017-10-13 21:38 | disposition home or self-care (01) ==
LOC: EME 17:47
DX: O23.592 Infection of other part of genital tract in pregnancy, second trimester (principal); N76.0 Acute vaginitis; Z3A.22 22 weeks gestation of pregnancy; Z86.19 Personal history of other infectious and parasitic diseases; Z88.0 Allergy status to penicillin; Z88.5 Allergy status to narcotic agent; Z91.040 Latex allergy status
CPT/HCPCS: 81003; 99281; 99282

== ENCOUNTER 2017-12-15 23:48 | Outpatient (CLI) | payer OTHER ==
[~2017-12-15] VITALS: Ht 162.6 cm; Wt 83.5 kg
[~2017-12-15 23:48] MED LIST changes: +CLOTRIMAZOLE 321 GM VG
[2017-12-16 00:10] VITALS: BP 103/64
[2017-12-16] MEDS ORDERED: TRAZODONE HCL50 MG PO (00:30)
[2017-12-16] MEDS ORDERED: PROAIR HFA8.5 GM IH (00:31)
[2017-12-16] MEDS ORDERED: ADVAIR 250/501 DISK IH (00:31)
[2017-12-16 04:09] LABS: APPEARANCE SL.HAZY ((CLEAR)); BILIRUBIN NEGATIVE; BLOOD NEGATIVE; COLOR YELLOW ((YELLOW)); GLUCOSE (STRIP) NEGATIVE; KETONES NEGATIVE; LEUKOCYTES NEGATIVE; NITRITE NEGATIVE; PROTEIN (STRIP) 30; SPECIFIC GRAVITY 1.029 (1.000-1.030); UROBILINOGEN 0.2 MG/DL (0.2-1.0)
[2017-12-16 04:14] LABS: BACTERIA RARE /HPF; CALCIUM OXALATE CRYSTALS 3+ /HPF; EPITHELIAL CELLS 2+ /HPF; HYALINE CASTS 0-5 /LPF; MUCUS TRACE /LPF; UCUL ADDED? NO; WHITE BLOOD CELLS 0-5 /HPF (0-5)
[2017-12-16 17:24] LABS: CANDIDA DNA PROBE NEGATIVE; GARDNERELLA DNA PROBE NEGATIVE; TRICHOMONAS DNA PROBE NEGATIVE
== END 2017-12-16 01:50 | disposition home or self-care (01) ==
LOC: LDRP-OP 23:48 → 2WEST 23:49 → LDRP-OP 03-16 12:16
PROVIDERS: Advanced Practice Midwife
DX: O26.893 Other specified pregnancy related conditions, third trimester (principal); N89.8 Other specified noninflammatory disorders of vagina; M54.9 Dorsalgia, unspecified; Z86.19 Personal history of other infectious and parasitic diseases; O99.343 Other mental disorders complicating pregnancy, third trimester; O99.333 Smoking (tobacco) complicating pregnancy, third trimester; O99.213 Obesity complicating pregnancy, third trimester; O99.323 Drug use complicating pregnancy, third trimester; F11.20 Opioid dependence, uncomplicated; Z3A.31 31 weeks gestation of pregnancy
CPT/HCPCS: 59025; 81003; 87086; 87480; 87510; 87660; G0378

== ENCOUNTER 2018-01-20 21:53 | Outpatient (CLI) | payer OTHER ==
[~2018-01-20 21:53] MED LIST changes: +ADVAIR 250/501 DISK IH; +PROAIR HFA8.5 GM IH
[2018-01-20 22:12] VITALS: BP 136/85
[2018-01-20 22:52] VITALS: BP 102/63
== END 2018-01-21 01:00 | disposition home or self-care (01) ==
LOC: LDRP-OP 21:53 → 2WEST 21:54 → LDRP-OP 03-16 02:18
DX: O60.03 Preterm labor without delivery, third trimester (principal); Z3A.36 36 weeks gestation of pregnancy; O99.213 Obesity complicating pregnancy, third trimester; O99.513 Diseases of the respiratory system complicating pregnancy, third trimester; O99.343 Other mental disorders complicating pregnancy, third trimester; Z88.0 Allergy status to penicillin
CPT/HCPCS: 59025; G0378